=== PATIENT | female | born 1960 | race Caucasian/White ===

== ENCOUNTER 2025-04-22 07:08 | Day surgery (SDC) | payer MEDICARE, SELFPAY ==
[2025-04-22 08:04] VITALS: BMI 35.4
--- NOTE | 2025-04-22 09:18 | ITS.CL.CARDI ---
[employer] - Cardioversion
Cardioversion
Procedure Report:
Date of Procedure: 04/22/25.
Procedure: Cardioversion.
Indication: Symptomatic atrial fibrillation.
Performing Physician: Clarita Coleman MD
Technique: The patient was brought to the holding area. Signed informed consent was obtained. A time out was called and performed. The patient was sedated by a member of the anesthesia service. Anticoagulation status was reviewed and was
appropriate. R-2 pads were placed anteriorly and posteriorly.ALEJANDRO was performed and confirmed the lack of suspicion for an intracardiac thrombus. A 200 J synchronized biphasic shock restored normal sinus rhythm without significant bradycardia. There
were no complications.
Conclusion: Uncomplicated cardioversion from atrial fibrillation to sinus rhythm.
Recommendation: Routine post cardioversion care. Continue long term care pharmacist anticoagulation.
cc:Alyson
== END 2025-04-22 09:18 | disposition home or self-care (01) ==
LOC: CATH 07:08
PROVIDERS: ATTENDING PHYSICIAN Internal Medicine Cardiovascular Disease; FAMILY PHYSICIAN Physician Assistant Medical; OTHER PHYSICIAN Student in an Organized Health Care Education/Training Program
DX: I48.91 Unspecified atrial fibrillation (principal); Z79.01 Long term (current) use of anticoagulants; I34.0 Nonrheumatic mitral (valve) insufficiency; E11.9 Type 2 diabetes mellitus without complications; E66.09 Other obesity due to excess calories; R03.0 Elevated blood-pressure reading, without diagnosis of hypertension
CPT/HCPCS: 93312; 93320; 93325; 92960; 93005

== ENCOUNTER → 2025-05-04 09:30 | Outpatient (REF) | payer MEDICARE, SELFPAY | LOC: RCS 09:30 | PROVIDERS: ATTENDING PHYSICIAN Student in an Organized Health Care Education/Training Program; FAMILY PHYSICIAN Physician Assistant Medical | DX: I48.91 Unspecified atrial fibrillation (principal) | CPT/HCPCS: 93306 ==

== ENCOUNTER 2025-05-19 15:50 | Inpatient (IN) | payer MEDICARE, SELFPAY ==
[2025-05-19 16:40] VITALS: BP 141/90
[2025-05-19 16:41] VITALS: BMI 34.8
--- NOTE | 2025-05-19 17:07 | W.PN.CD ---
Addendum entered and electronically signed by Jarrett High MD 05/19/25 17:19:
I saw and examined the patient.
The CLEARING TUB WORKER's note was reviewed and I agree with the note.
Comment: Sotalol initiation tonight, if no conversion to SR will plan for DCCV on the 21 of May.
Original Note:
Today's Communication / Plan
-
This is the H&P summary. Please see scanned H&P.
Await BMP. Sotalol loading per protocol.
Impression / Plan
-
I/P: 64F with persistent atrial fibrillation, hypercholesterolemia, type 2 diabetes mellitus, and asthma presents for sotalol loading
Outpatient slice plug cutter operator helper: Dr. Shields
Persistent atrial fibrillation
- Currently rate controlled on metoprolol succinate 25 mg twice daily
- The plan is for rhythm control, sotalol loading per protocol after BMP obtained
- DCCV 05/21/2025 if required, she denies missed doses of anticoagulation
- Oral Anticoagulation: Apixaban 5 mg twice daily
- [id number]: Score at least 3 (Diabetes Mellitus, age 65-74, female gender)
Hypercholesterolemia
- Most recent LDL 146, goal LDL <70
- Unclear why she is not on a statin
Type 2 diabetes mellitus, HgbA1c 7.0%, per primary service, diabetic diet
Daily EtOH consumption, at least 3 drinks every evening, never had withdrawal with cessation, follow for signs and symptoms of withdrawal
Physical Exam
Vital Signs/Labs
Vital Signs
Temp Pulse Resp BP Pulse Ox
98.3 F 90 16 141/90 95
05/19/25 16:30 05/19/25 17:00 05/19/25 16:30 05/19/25 16:40 05/19/25 16:30
05/18/25 05/19/25 05/20/25
06:59 06:59 06:59
Actual Weight 89 kg
Physical Exam
Constitutional: No acute distress and Comfortable
EENT: Anicteric and Moist mucous membranes
Cardiovascular: Rhythm/rate is irregular and S1S2 is normal
Respiratory: Respiratory effort normal and Lungs clear to auscul.
GI: Soft, Distention absent, Flat, Non tender and Normal bowel sounds
Neuro/Psych: AO x 3
Other: Skin
Data Reviewed
-
Date of Service: May 19, 2025
EKG: Ordered by me
Echo: Report Reviewed by me
Labs: Labs Ordered by me
[2025-05-19 17:16] VITALS: BMI 34.8
--- NOTE | 2025-05-19 17:40 | PTCARENOTE ---
Patient admitted to IVU for Sotalol loading. Walked into room, placed on telemetry. EKG done, IV placed in left forearm and labs collected. She is AO x3, A-fib HR 90's. Plan of care reviewed. Oriented to room and call gardner
[2025-05-19 18:00] LABS: Blood Urea Nitrogen 13 mg/dl (7-17); Calcium 9.5 mg/dl (8.4-10.2); Carbon Dioxide 26 mmol/L (22-30); Chloride 108 mmol/L (98-107); Estimated Creatinine Clearance 99 ml/min; Glucose 115 mg/dl (70-99); Potassium 4.3 mmol/L (3.5-5.1); Sodium 140 mmol/L (135-145); eGFR > 60.00
[2025-05-19 18:54] VITALS: BP 149/74
[2025-05-19 19:30] VITALS: BP 129/80
[2025-05-19] MEDS: BETAPACE 80 MG PO (19:31)
[2025-05-19] MEDS: ELIQUIS 5 MG PO (19:32)
[2025-05-19] MEDS: SYMBICORT 160/4.5 MCG INHALER 2 PUFF INH (19:49)
[2025-05-19 21:52] VITALS: BP 158/95
[2025-05-19 23:02] VITALS: BP 145/94
--- NOTE | 2025-05-19 23:54 | PTCARENOTE ---
Patient received at change of shift resting in the bed. Reports no concerns or complaints at this time. First dose of Sotalol given, two hour ECG completed. Afib on telemetry. Oxygen saturation 95% on room air. Plan of care discussed. Call gardner
within reach. Care ongoing.
[2025-05-20] VITALS (9 sets, daily range): BP systolic 129–153; BP diastolic 71–106
[2025-05-20] MEDS: BETAPACE 80 MG PO ×2 (08:06→19:48)
[2025-05-20] MEDS: ELIQUIS 5 MG PO ×2 (08:06→19:48)
[2025-05-20] MEDS: VITAMIN D3 (cholecalciferol) 125 MCG PO (08:07)
[2025-05-20] MEDS: ZYRTEC 10 MG PO (08:07)
--- NOTE | 2025-05-20 08:15 | W.PN.CD ---
Today's Communication / Plan
-
- Continue Sotalol loading
- EKG and QTc is acceptable but so far dose # 1/5
Impression / Plan
-
I/P: 64F with persistent atrial fibrillation, hypercholesterolemia, type 2 diabetes mellitus, and asthma presents for sotalol loading
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 Shields
Persistent atrial fibrillation
- Sotalol initiated on 05/19/25 - so far dose 1/
- Rate is slow and Sotalol is likely to work better with slow rates. Expected to come to sinus after sotalol.
- DCCV 05/21/2025 if required, she denies missed doses of anticoagulation
- Oral Anticoagulation: Apixaban 5 mg twice daily
- [id number]: Score at least 3 (Diabetes Mellitus, age 65-74, female gender)
Hypercholesterolemia
- Most recent LDL 146, goal LDL <70
- Unclear why she is not on a statin
Type 2 diabetes mellitus, HgbA1c 7.0%, per primary service, diabetic diet
Daily EtOH consumption, at least 3 drinks every evening, never had withdrawal with cessation, follow for signs and symptoms of withdrawal
Physical Exam
Vital Signs/Labs
Vital Signs
Temp Pulse Resp BP Pulse Ox
98.4 F 85 18 149/94 93
05/20/25 07:59 05/20/25 08:06 05/20/25 03:39 05/20/25 08:06 05/20/25 07:59
05/19/25 05/20/25 05/21/25
06:59 06:59 06:59
Actual Weight 89 kg
05/19/25 16:58
Physical Exam
Constitutional: No acute distress and Comfortable
EENT: Anicteric and Moist mucous membranes
Cardiovascular: Pedal edema is absent, JVD pressure is normal, Rhythm/rate is irregular and Systolic murmur present
Respiratory: Respiratory effort normal, Wheeze Absent and Crackles Absent
GI: Soft, Non tender and Normal bowel sounds
Neuro/Psych: Alert and Oriented
Data Reviewed
-
Date of Service: May 20, 2025
Medical Decision Making: Reviewed Test Results, Test Interpretation and Review of Case with other Provider
EKG: Tracing Personally Visualized and interpreted
Echo: Report Reviewed by me
Labs: Labs Reviewed by me
Old Records: Reviewed
[2025-05-20 08:20] LABS: Glucose - Point of Care 146 mg/dl (70-99)
[2025-05-20] MEDS: SYMBICORT 160/4.5 MCG INHALER 2 PUFF INH ×2 (08:45→19:50)
[2025-05-20] MEDS: SPIRIVA RESPIMAT 2.5 MCG 2 PUFF INH (08:45)
[2025-05-20 11:36] LABS: Glucose - Point of Care 152 mg/dl (70-99)
--- NOTE | 2025-05-20 13:05 | CM ---
CM following for DC planning needs.
Met w/ patient at bedside to complete initial assessment. Spouse also present.
Pt. resides w/ spouse in a private, 3 STH w/ 5 [address]. Functionally, patient is indep. prior to admission w/ ADLs, mobility without the use of any assisted device. Pt. has RX plan and uses [facility] in [place] on [address] for prescription needs.
Anticipated DC plan is for home without needs.
CM to follow.
--- NOTE | 2025-05-20 17:53 | PTCARENOTE ---
Discussed sotolol medication loading with patient. VSS. Pt verbalized understanding of above. Will monitor.
--- NOTE | 2025-05-21 03:33 | PTCARENOTE ---
Received pt @ change of shift. AAOx3, VSS-- A-fib on monitor w/ occasional PVCs. Discussed being NPO @ midnight for possible cardioversion in AM. Pt verbalizes understanding, but questioned having CV prior to finishing doses of Sotalol loading. Call
gardner within reach.
[2025-05-21 05:53] VITALS: BP 141/84
--- NOTE | 2025-05-21 07:11 | W.PN.CD ---
Today's Communication / Plan
-
- DCCV today
- Discharge tomorrow
Impression / Plan
-
I/P: 64F with persistent atrial fibrillation, hypercholesterolemia, type 2 diabetes mellitus, and asthma presents for sotalol loading
Outpatient clothing sales assistant: Dr. Shields
Persistent atrial fibrillation
- Sotalol initiated on 05/19/25 - so far dose 01/21
- Still in AF.
- DCCV 05/21/2025- she denies missed doses of anticoagulation
- Oral Anticoagulation: Apixaban 5 mg twice daily
- [id number]: Score at least 3 (Diabetes Mellitus, age 65-74, female gender)
Hypercholesterolemia
- Most recent LDL 146, goal LDL <70
- Unclear why she is not on a statin
Type 2 diabetes mellitus, HgbA1c 7.0%, per primary service, diabetic diet
Daily EtOH consumption, at least 3 drinks every evening, never had withdrawal with cessation, follow for signs and symptoms of withdrawal
Physical Exam
Vital Signs/Labs
Vital Signs
Temp Pulse Resp BP Pulse Ox
98.9 F 85 16 141/84 94
05/21/25 06:08 05/21/25 06:00 05/21/25 06:08 05/21/25 05:53 05/21/25 06:08
05/20/25 05/21/25 05/22/25
06:59 06:59 06:59
Actual Weight 89 kg
05/19/25 16:58
Physical Exam
Constitutional: No acute distress and Comfortable
EENT: Anicteric and Moist mucous membranes
Cardiovascular: Pedal edema is absent, JVD pressure is normal, Rhythm/rate is irregular and Pedal edema present
Respiratory: Respiratory effort normal, Wheeze Absent and Crackles Absent
GI: Soft, Non tender and Normal bowel sounds
Neuro/Psych: Alert, Oriented and AO x 3
Data Reviewed
-
Date of Service: May 21, 2025
Medical Decision Making: Reviewed Test Results, Test Interpretation and Review of Case with other Provider
EKG: Tracing Personally Visualized and interpreted
Echo: Report Reviewed by me
Labs: Labs Reviewed by me
Old Records: Reviewed
[2025-05-21] MEDS: SYMBICORT 160/4.5 MCG INHALER 2 PUFF INH ×2 (07:15→19:53)
[2025-05-21] MEDS: SPIRIVA RESPIMAT 2.5 MCG 2 PUFF INH (07:15)
[2025-05-21 07:20] VITALS: BP 149/90
[2025-05-21] MEDS: BETAPACE 80 MG PO ×2 (08:00→19:58)
[2025-05-21] MEDS: ELIQUIS 5 MG PO ×2 (08:01→19:58)
[2025-05-21] MEDS: VITAMIN D3 (cholecalciferol) 125 MCG PO (08:01)
[2025-05-21] MEDS: ZYRTEC 10 MG PO (08:01)
--- NOTE | 2025-05-21 11:22 | ITS.CL.CARDI ---
[employer] - Cardioversion
Cardioversion
Procedure Report:
Procedure: Direct current electrical cardioversion
Pre-operative diagnosis: Persistent atrial fibrillation
Post-operative diagnosis: Persistent atrial fibrillation status post DC cardioversion to sinus rhythm
Anesthesia: MAC
Attending Physician: Rito Guidry MD
Procedure Description: The patient was brought to the electrophysiology laboratory in the fasting state. Adherence to anticoagulation regimen was confirmed. Informed consent was obtained from the patient prior to the start of the procedure.
Electrodes were placed on the patient and connected to an external defibrillator. Monitoring of blood pressure, ECG tracings, and pulse oximetry was initiated. The pads were applied to the patient in the anterior and posterior positions. The patient
was sedated by the anesthesiologist. A 200 joule biphasic synchronized shock was delivered to the patient under MAC anesthesia. Sinus rhythm was successfully restored. The patient recovered uneventfully from MAC anesthesia. There were no immediate
post-procedure complications. The patient left the lab in good condition. The attending physician was present throughout the entire procedure.
Impression: Successful direct current cardioversion with latter day of sinus rhythm after one 200 joule biphasic synchronized shock.
[2025-05-21 12:05] VITALS: BP 137/83
--- NOTE | 2025-05-21 13:09 | PTCARENOTE ---
Received pt post CV. VSS. Pt remains in NSR. Meds as ordered. Will monitor.
[2025-05-21 15:38] VITALS: BP 130/78
--- NOTE | 2025-05-21 16:05 | CM ---
CM following for DC planning needs.
Met w/ patient at bedside. She anticipates DC soon. Offers no concerns or needs.
Plan is for DC to home once stable, no needs.
Will remain avail.
[2025-05-21 19:10] VITALS: BP 126/70
[2025-05-21 22:06] VITALS: BP 147/86
--- NOTE | 2025-05-21 22:09 | PTCARENOTE ---
Received patient at change of shift. SR on the monitor, HR in the 60s. Sotalol administered as per order, 2 hours later EKG obtained. QTc: 442. No complaints from pt at this time, call gardner within reach.
[2025-05-22 05:13] VITALS: BP 145/88
[2025-05-22] MEDS: VITAMIN D3 (cholecalciferol) 125 MCG PO (08:00)
[2025-05-22] MEDS: ZYRTEC 10 MG PO (08:00)
[2025-05-22] MEDS: BETAPACE 80 MG PO (08:00)
[2025-05-22] MEDS: ELIQUIS 5 MG PO (08:00)
[2025-05-22 08:15] VITALS: BP 147/81
--- NOTE | 2025-05-22 08:36 | W.PN.CD ---
Today's Communication / Plan
-
d/c home
Impression / Plan
-
I/P: 64F with persistent atrial fibrillation, hypercholesterolemia, type 2 diabetes mellitus, and asthma presents for sotalol loading
Outpatient convalescent sitter: Dr. Shields
Persistent atrial fibrillation
- Sotalol initiated on 05/19/25 - qtc is stable
- s/p DCCV 05/21/25
- Oral Anticoagulation: Apixaban 5 mg twice daily
- [id number]: Score at least 3 (Diabetes Mellitus, age 65-74, female gender)
Hypercholesterolemia
- Most recent LDL 146, goal LDL <70
- Unclear why she is not on a statin
Type 2 diabetes mellitus, HgbA1c 7.0%, per primary service, diabetic diet
Daily EtOH consumption, at least 3 drinks every evening, never had withdrawal with cessation, follow for signs and symptoms of withdrawal
Physical Exam
Vital Signs/Labs
Vital Signs
Temp Pulse Resp BP Pulse Ox
98.5 F 76 18 126/70 94
05/22/25 08:17 05/21/25 19:58 05/22/25 08:17 05/21/25 19:58 05/22/25 08:17
05/19/25 16:58
Physical Exam
Constitutional: No acute distress
Cardiovascular: Rhythm & rate is regular, Pedal edema is absent, JVD pressure is normal, Systolic murmur absent, Diastolic murmur absent and Rhythm/rate is irregular
Respiratory: Respiratory effort normal, Lungs clear to auscul., Wheeze Absent, Crackles Absent and Rhonchi Absent
Neuro/Psych: AO x 3
Data Reviewed
-
Date of Service: May 22, 2025
EKG: Tracing Personally Visualized and interpreted (nsr stable qtc) and Other (tele nsr, pacs)
[2025-05-22] MEDS: SPIRIVA RESPIMAT 2.5 MCG 2 PUFF INH (08:41)
[2025-05-22] MEDS: SYMBICORT 160/4.5 MCG INHALER 2 PUFF INH (08:42)
--- NOTE | 2025-05-22 09:29 | W.DCSUMMARY ---
Discharge Summary
Discharge Data
Date of Admission: 05/19/25
Date of Discharge: 05/22/25
Total time spent discharging patient (in min): 31 minutes
-
Pending Results: No
Additional Pending Results:
none
Hospital Course
Patient is a 64-year-old female with persistent atrial fibrillation hypercholesterolemia, type 2 diabetes and asthma who presented for sotalol loading on 05/19/2025. She was admitted to the IVU and monitored on telemetry with serial EKGs. She
tolerated initiation with 6 doses of sotalol without any concern for QTc prolongation. She required cardioversion on 05/21/2025 which was successful. She was sent home to continue on sotalol and Eliquis without interruption. I did educate her as to
the importance of taking sotalol and Eliquis without missing any doses. She will follow-up with her primary dragline operator helper Dr. Menchaca. Importantly, we did confirm that her pharmacy is open till 2 PM today. Her prescription was sent and
arrangements for pickup this morning so that she is not missing any doses upon discharge on 22 May. Of note, it is unclear why she is not on a statin given her history of diabetes and LDL 146, recommend follow-up discussion with primary
dragline operator helper or PCP. Goal LDL is less than 70.
Discharge Plan
-
Patient Disposition: Home (Routine Discharge)
Discharge Diagnosis/Procedures: Persistent atrial fibrillation
Sotalol loading s/p cardioversion
Diet: Low Cholesterol and Diabetic, Carb Controlled
Activity: As tolerated
Driving Restrictions: No driving for 24 hours
Bathing Restrictions: None
Referrals:
Patsy Dailey NP [Specified Professional Personl, Cardiology] - 07/01/25 10:20 am
Grisel Cortez PA [Family Provider, Family Practice]
Prescriptions:
New
sotalol 80 mg Tablet
80 mg PO Q12 Qty: 60 1RF
Continued
cetirizine [Zyrtec] 10 mg Tablet
10 mg PO DAILY
cholecalciferol (vitamin D3) [Vitamin D3] 125 mcg (5,000 unit) Tablet
125 mcg PO DAILY
Eliquis 5 mg Tablet
5 mg PO BID
Trelegy Ellipta 200-62.5-25 mcg Blister With Device
1 inh INHALATION DAILY
Discontinued
metoprolol succinate 25 mg Tablet Extended Release 24 Hr
25 mg PO BID
Discharge Orders:
Discharge Patient (As Directed); Ordered 05/22/25
Ordered By: Jonel Coleman
Care Plan Goals
Care Plan Goals:
Problem: Readiness for enhanced knowledge related to diagnosis and treatment plan
Goal: Understand your diagnosis and treatment plan needs, including medications if applicable.
Instructions: Know your diagnosis, underlying causes and treatment plan options, including medications if applicable. Consult with your health care team to learn about your diagnosis and treatment plan, including medications if applicable.
Discharge Date and Time
Print Language: LITHUANIAN
== END 2025-05-22 11:09 | disposition home or self-care (01) | DRG 310 ==
LOC: IVU 15:50
PROVIDERS: Internal Medicine Cardiovascular Disease; Nurse Practitioner Gerontology; ADMITTING PHYSICIAN Student in an Organized Health Care Education/Training Program; FAMILY PHYSICIAN Physician Assistant Medical
PROC: 5A2204Z Restoration of Cardiac Rhythm, Single (ICD-10-PCS; 2025-05-21)
DX: I48.19 Other persistent atrial fibrillation (principal); E78.00 Pure hypercholesterolemia, unspecified; E11.9 Type 2 diabetes mellitus without complications
CPT/HCPCS: 80048; 82962; 92960; 93005; 94640